=== PATIENT | female | born 1980 | race African-American/Black ===

== ENCOUNTER 2016-04-18 16:52 | Emergency (ER) | payer OTHER ==
[~2016-04-18] VITALS: Ht 172.7 cm; Wt 79.5 kg
[2016-04-18 17:15] VITALS: BP 112/69; PULSE 58; RESP 16; O2SAT 100
--- NOTE | 2016-04-18 19:05 | ED.REPORT ---
HPI-Abd Pain F Under 38 Date of Service Apr 18, 2016 ED Provider: Dr. Paul Veronica MD A 35 year old female with a history of inguinal hernia presents to the ED complaining of intermittent abdominal pain that began 2 weeks ago. Her pain became increasingly worse today and became dull and constant. The pain currently migrates towards her groin. Patient has also been experiencing nausea secondary to the pain. She was sent from the [facility]. Patient denies any change of . Nursing Notes Stated Complaint: ABDOMINAL PAIN Chief Complaint: Female Abdominal Pain Nursing Notes Reviewed: Yes Allergies: Coded Allergies: sulfamethoxazole (Verified Allergy, Unknown, Nausea,Vomiting, 04/18/16) trimethoprim (Verified Allergy, Unknown, Nausea,Vomiting, 04/18/16) General Time Seen by MD: 19:05 Chief Complaint Abdominal pain Hx Obtained From: Patient Arrived By: Walk-in Sudden in Onset?: No Onset Occurred: 1 - 4 hours ago Symptom Duration: Intermittent Progression since Onset: Constant (Pain today has been constant ), Intermittent Location: : Abdomen lower Quality: Dull, Painful Radiation: : Inguinal left: Inguinal right Severity: Current: Mild Severity: Maximum: Moderate Associated with: Reports: Nausea, Denies: Fever, Vomiting Pertinent Negative: Pt denies other symptoms Recent Healthcare: No recent hospitalization, Recent doctor visit ([facility]) Past Medical History Past Medical History Inguinal hernia Past Surgical History Reports: Inguinal hernia repair Smoking History Unknown if Ever Smoker Social History Other Social History: Good social support Ambulatory Status Independent Review of Systems Constitutional: Denies: Chills, Fever Respiratory: Denies: Shortness of breath Cardiovascular: Denies: Chest pain GI: Reports: Abdominal pain, Nausea, Denies: Vomiting Female: Denies: Complete sys rev & neg: except as marked. Neurologic: Denies: Change LOC Physical Exam Initial Vital Signs Vital Signs (First) Date Time Temp Pulse Resp B/P Pulse Ox O2 Delivery O2 Flow Rate FiO2 04/18/16 17:15 36.9 58 16 112/69 100 Room Air Initial VS: Reviewed Head / Eyes: Atraumatic, Normocephalic, PERRL Extremities: Vascular intact, Neuro intact, No swelling, No tenderness Skin: Warm, Dry, No cyanosis Neurologic: Alert, Oriented, Nonfocal Psychiatric: Mood/affect normal, Behavior normal, Normal thought content General/Constitutional: Awake, Alert, No acute distress Respiratory / Chest: Atraumatic, Breath sounds NL, Breath sounds = bilat Cardiovascular: Heart rate NL, Regular rhythm, Heart sounds NL Abdomen: Atraumatic, Soft Tenderness/Guarding/Rebound: Positive: Tender periumbilical ABDOMEN: Umbillical tenderness and fullness Back: Atraumatic, Inspection NL Interpretation & Diagnostics Lab Results Interpretation Result Diagram: 04/18/16 19304/18/16 193 Test 04/18/16 19:39 04/18/16 20:00 White Blood Count 8.6th/mm3 (3.8-10.1) Red Blood Count 4.16mil/mm3 (3.90-5.20) Hemoglobin 11.4g/dL (12.0-15.6) Hematocrit 35.0% (35.0-46.0) Mean Corpuscular Volume 84.1fL (81-100) Mean Corpuscular Hemoglobin 27.4pg (27.0-35.0) Mean Corpuscular Hemoglobin Concent 32.6% (32.0-37.0) Red Cell Distribution Width 12.6% (12.3-15.4) Platelet Count 358bil/L (150-400) Neutrophils (%) (Auto) 32.0% (40-74) Lymphocytes (%) (Auto) 57.0% (14-46) Monocytes (%) (Auto) 8.6% (4-12) Eosinophils (%) (Auto) 2.0% (0-5) Basophils (%) (Auto) 0.2% (0-3) Sodium Level 138mEq/L (134-144) Potassium Level 3.9mEq/L (3.5-5.2) Chloride Level 103mEq/L (97-108) Carbon Dioxide Level 22mmol/L (18-29) Blood Urea Nitrogen 11mg/dL (6-20) Creatinine 0.75mg/dL (0.57-1.00) Estimat Glomerular Filtration Rate 112mL/min (>59) Glucose Level 92mg/dL (60-99) Calcium Level 8.9mg/dL (8.5-10.1) Total Bilirubin 0.2mg/dL (0.0-1.2) Aspartate Amino Transf (AST/SGOT) 17U/L (0-50) Alanine Aminotransferase (ALT/SGPT) 12U/L (0-32) Alkaline Phosphatase 41U/L (25-150) Total Protein 7.1g/dL (6.4-8.4) Albumin 4.2g/dL (3.4-5.0) Lipase 27U/L (13-60) Hold Garner Top Tube Received (Received) Urine Color Yellow (YELLOW) Urine Appearance Clear (CLEAR,HAZY) Urine pH 6.5 (5.0-8.0) Urine Specific [place] 1.010 (1.003-1.035) Urine Protein Negativemg/dL (NEG,TRACE) Urine Glucose (UA) Negativemg/dL (NEGATIVE) Urine Ketones Negativemg/dL (NEGATIVE) Urine Occult Blood Negative (NEGATIVE) Urine Nitrite Negative (NEGATIVE) Urine Bilirubin Negative (NEGATIVE) Urine Urobilinogen Normalmg/dL (NORMAL) Urine Leukocyte Esterase Negative (NEGATIVE) Urine RBC 0-2/hpf (0-2) Urine WBC 0-5/hpf (0-5) Urine Epithelial Cells Few/hpf (NONE-MOD) Urine Crystals None seen (NONE SEEN) Urine Bacteria None/hpf (NONE-FEW) Urine Hyaline Casts None/lpf (NONE) Urine Granular Casts None seen (NONE SEEN) Urine Waxy Casts None seen (NONE SEEN) Urine Red Blood Cell Casts None seen (NONE SEEN) Urine White Blood Cell Casts None seen (NONE SEEN) Urine Mucus None seen (None Seen) Urine Trichomonas None seen (NONE SEEN) Urine Yeast None (NONE SEEN) Urinalysis Comment None Urine Culture Reflexed Not indicated CT Abd / Pelvis Interpretation IMPRESSION: 1. No evidence of appendicitis. 2. Enlargement of the ovaries bilaterally with bilateral ovarian cysts. Further evaluation may be obtained with pelvic ultrasound if clinically indicated. 3. Small hypervascular focus in the left hepatic lobe is nonspecific but likely represents a flash filling hemangioma. Further characterization may be performed with a nonemergent liver protocol CT or MRI. Dictated by: Feliciano Mclain M.D. on 04/18/2016 at 21:26 Study type: Abdominal CT IV contrast, Abdom CT oral contrast Interpretation / Wet Read by: Interpret - Radiologist Re-Eval/Medical Decision Re-Evaluation/Progress #1: Time of Eval: 22:13 Patient Status: Condition improved, Pain resolved Re-Evaluation/Progress Note: Patient is rechecked. Abdomen is soft and nontender and patient states she is pain free. She is informed of her lab results, CT results and diagnosis. All questions are addressed. She understands and agrees with the treatment plan. Re-Evaluation/Progress #2: Time of Eval: 22:31 Patient Status: Condition improved, Pain resolved Evaluation: Abdomen soft/non-tender Re-Evaluation/Progress Note: Patient is rechecked. CT scan results discussed. I offered her pelvic ultrasound. She declines. She states she is feeling much better and rather have an emergent ultrasound she will have this set up through her primary care physician. Considering that she is pain-free now she exhibits no signs or symptoms consistent with PID or ectopic or ovarian torsion I think that an outpatient ultrasound is a reasonable plan. I also discussed the hemangioma seen on her liver and she will follow this up with her primary care as well. Counseled Regarding: Diagnosis, Lab results, Need for follow-up, When/why to return to ED Discharge & Departure Primary Impression: Abdominal pain Abdominal location: periumbilical Qualified Code: R10.33 - Periumbilical pain Additional Impression: Bilateral ovarian cysts Disposition: Home Discharge Condition All VS Reviewed: Yes Condition: Stable Patient Instructions: Ovarian Cyst (ED), Acute Abdominal Pain (ED) Additional Instructions: The CT scan shows that you have a normal appendix. There was no evidence of a hernia. You do have what appears to be a hemangioma in your liver left lobe. It is recommended that you have a follow-up evaluation of this. Talk with your primary care physician about this. You do have bilateral ovarian cysts. Perhaps you experienced a rupture today to have caused the pain. Ovarian torsion seems less likely, however, if the pain returns or if you develop any sudden or severe pelvic pain that you will need to have an emergent pelvic ultrasound. Otherwise, you may follow up with your clinical statistics manager regarding the ovary and cysts. The pain around your belly button is most likely related to scar tissue. Take 1-2 [place] every 6 hours as needed for severe pain. Take Motrin 600 mg every 8 hours as needed for moderate pain. Take 1 Zofran every 8 hours as needed for nausea. do not drive or drink alcohol or consume acetaminophen while taking the [place]. All your clinical statistics manager in the morning to set up a follow-up appointment. Again do not hesitate to return if the pain comes back or if you have any sudden or severe pelvic pain. Referrals: [facility] (PCP) [facility] Portions of this note were transcribed by Good Bach. I, Dr. Veronica personally performed the history, physical exam and medical decision-making; I reviewed and confirmed the accuracy of the information in the transcribed note. Signed by: Monster Caban, 04/18/16 2230. Paul Veronica DO Apr 18, 2016 19:05 GOOD BACH Apr 18, 2016 19:14
[2016-04-18] MEDS ORDERED: Iohexol 300 mg/mL 30 mL Inj PO ONE (19:30)
[2016-04-18 20:04] VITALS: BP 137/76; PULSE 49; RESP 16; O2SAT 100
[2016-04-18 20:04] LABS: BASOPHILS % (AUTO) 0.2 % (0-3); MONOCYTES % (AUTO) 8.6 % (4-12); Mean Corpuscular Hemoglobin 27.4 pg (27.0-35.0); Mean Corpuscular Volume 84.1 fL (81-100); Platelet Count 358 bil/L (150-400)
[2016-04-18] MEDS: Ondansetron 2 mg/mL 2 mL Inj IVPUSH PRN ×2 (20:11→21:30)
[2016-04-18 20:40] LABS: APPEARANCE,URINE CLEAR (CLEAR,HAZY); COLOR,URINE YELLOW (YELLOW); OCCULT BLOOD,URINE NEGATIVE (NEGATIVE); PH,URINE 6.5 (5.0-8.0); UROBILINOGEN,URINE NORMAL (NORMAL)
[2016-04-18] MEDS ORDERED: HYDROmorphone 0.5 mg/0.5 mL iSecure Syringe IVPUSH PRN (21:25)
--- NOTE | 2016-04-18 21:34 | DRSVH ---
PROCEDURE: CT ABDOMEN AND PELVIS WITH CONTRAST ([id number]) INDICATIONS: periumbillical abdominal pain TECHNIQUE: After the administration of oral and intravenous contrast, 5 mm thick sections acquired from the diap hragms to the symphysis. 5 mm thick coronal and sagittal reformats were performed. For radiation do se reduction, the following was used: automated exposure control, adjustment of mA and/or kV accordi ng to patient size. COMPARISON: None. FINDINGS: Image quality: Excellent. ABDOMEN: Lung bases: Lung bases are clear. Heart size is normal. Solid organs: There is a small hypervascular enhancing focus within the left hepatic lobe measuring up to 5 mm. Biliary system is non-dilated. Pancreas enhances normally. No adrenal nodules. Kidney s are normal in size and enhancement, without hydronephrosis. Peritoneum and bowel: Stomach, small bowel, and colon loops are normal in caliber and wall thickness . The appendix is normal in appearance. No free fluid or air. Nodes and vessels: No retroperitoneal or mesenteric adenopathy. Aorta and inferior vena cava are no rmal in caliber. Miscellaneous: No ventral hernias. PELVIS: Genitourinary: Bladder wall thickness is normal. The ovaries are enlarged, measuring up to 5.5 x 4. 4 cm on the right, with 2 prominent right ovarian cysts measuring up to 4.3 cm and 3.0 cm. On the le ft, the ovary measures up to approximately 4.9 x 4.1 cm with an indistinct cyst measuring approximate ly 3.2 cm. The uterus appears within normal size limits. Miscellaneous: No inguinal hernias or adenopathy. Bones: No suspicious bony lesions. No vertebral body compression fractures. IMPRESSION: 1. No evidence of appendicitis. 2. Enlargement of the ovaries bilaterally with bilateral ovarian cysts. Further evaluation may be o btained with pelvic ultrasound if clinically indicated. 3. Small hypervascular focus in the left hepatic lobe is nonspecific but likely represents a flash f illing hemangioma. Further characterization may be performed with a nonemergent liver protocol CT or MRI. Dictated by: Feliciano Mclain M.D. on 04/18/2016 at 21:26 Approved by: Feliciano Mclain M.D. on 04/18/2016 at 21:32
[2016-04-18] MEDS ORDERED: _HYDROcodone/APAP 5-325 mg Tablet PO PRN (22:20)
[2016-04-18] MEDS ORDERED: _Ondansetron ODT 4 mg Tablet PO PRN (22:20)
[2016-04-18 22:51] VITALS: BP 133/76; PULSE 52; RESP 14; O2SAT 100
== END 2016-04-18 23:03 | disposition home or self-care (01) ==
LOC: SED 16:52
DX: R10.33 Periumbilical pain (principal); N83.201 Unspecified ovarian cyst, right side; N83.202 Unspecified ovarian cyst, left side; R11.0 Nausea; Z88.1 Allergy status to other antibiotic agents; Z88.2 Allergy status to sulfonamides
CPT/HCPCS: 36415; 74177; 80053; 81000; 81025; 83690; 85025; 96374; 96375; 96376; 99285; J1170; J2405; Q9967